=== PATIENT | female | born 1970 | race Caucasian/White ===

== ENCOUNTER 2022-10-29 12:38 | Outpatient (CLI) | payer BC, SELFPAY ==
--- OUTSIDE RECORDS SUMMARY | 2022-10-29 12:44 | XMS_ITS | Clinical Summary ---
Author Name Unknown Organization [facility] Address [address] [place] [address] Encounter 03/08/21 - 03/08/21 [facility] [address] [place] [address] Encounter Diagnosis Chiari I malformation(Discharge Diagnosis) - 03/08/21 Discharge Disposition: Home or Self Care Attending Physician: Jomar Myers MD Admitting Physician: Jomar Myers MD Allergies, Adverse Reactions, Alerts Substance Reaction Severity Status traZODone Moderate Active Discharge Medications buPROPion Status: Ordered Start Date: 03/08/21 300 Milligrams Oral every day. XL. cetirizine (cetirizine 10 mg oral tablet) Status: Ordered Start Date: 03/08/21 1 tabs Oral every day. cholecalciferol (Vitamin D3) Status: Ordered Start Date: 03/08/21 50 Micrograms Oral every day. cyclobenzaprine (Flexeril) Status: Ordered Start Date: 03/08/21 10 Milligrams Oral 3 times a day. dicyclomine (Bentyl) Status: Ordered Start Date: 03/08/21 10 Milligrams Oral. DULoxetine (Cymbalta 30 mg o ral delayed release capsule) Status: Ordered Start Date: 03/08/21 30 Milligrams Oral every day. do not crush or chew. melatonin (Melatonin) Status: Ordered Start Date: 03/08/21 3 Milligrams Oral every day at bedtime. metFORMIN (metFORMIN 500 mg oral tablet) Status: Ordered Start Date: 03/08/21 500 Milligrams Oral 2 times a day. metoprolol (Toprol-XL 100 mg oral tablet, extended release) Status: Ordered Start Date: 03/08/21 1 tabs Oral every day. multivitamin (multivitamin a dult, oral tablet) Status: Ordered Start Date: 03/08/21 1 tabs Oral every day. pantoprazole (Protonix 40 mg oral delayed release tablet) Status: Ordered Start Date: 03/08/21 1 tabs Oral every day. QUEtiapine (SEROquel 50 mg o ral tablet) Status: Ordered Start Date: 03/08/21 50 Milligrams Oral every day. rosuvastatin (Crestor 20 mg oral tablet) Status: Ordered Start Date: 03/08/21 1 tabs Oral every day. zinc sulfate (Zinc) Status: Ordered Start Date: 03/08/21 50 Milligrams Oral every day. Problem List Hospital Discharge Diagnosis Chiari I malformation(Discharge Diagnosis) - 03/08/21 (This Visit) Vital Signs Most recent to oldest [Reference Range]: 1 Pain Present Yes actual or suspec jerry pain (03/08/21 11:20 AM) Able to self report Yes (03/08/21 11:20 AM) able to use numeric rating scale Yes (03/08/21 11:20 AM) Primary Pain Aggravating Factors Movemen t (03/08/21 11:20 AM) Primary Pain Alleviating Factors Cold th erapy, Other: Rest (03/08/21 11:20 AM) Primary Pain Location Neck, Shoulder, Other: joints and bones (03/08/21 11:20 AM) Primary Pain Onset Gradual (03/08/21 11:20 AM) Primary Pain Quality Chronic, Aching 1 (03/08/21 11:20 AM) 1Result Comment: Numb Social History Social History Type Response Smoking Status Unknown if ever smok ed; Exposure to Secondhand Smoke: No; Tobacco use per day: Patient reports she vapes; entered on: 03/08/21 Sex
--- OUTSIDE RECORDS SUMMARY | 2022-10-29 12:44 | XMS_ITS | Clinical Summary ---
Author Name Unknown Organization [facility] Address [address] [place] [id number] Encounter 06/27/22 - 06/27/[address] [address]- Encounter Diagnosis Chiari I malformation(Discharge Diagnosis) - 06/27/22 Discharge Disposition: Home or Self Care Attending Physician: Jomar Myers MD Admitting Physician: Jomar Myers MD Referring Physician: Jomar Myers MD Allergies, Adverse Reactions, Alerts Substance Reaction Severity Status traZODone Moderate Active Discharge Medications buPROPion (buPROPion 150 mg/ 24 hours (XL) oral tablet, extended release) Status: Ordered Start Date: 06/27/22 1 tabs Oral every 24 hours. buPROPion (buPROPion 300 mg/ 24 hours (XL) oral tablet, extended release) Status: Ordered Start Date: 06/27/22 1 tabs Oral every day. cetirizine (cetirizine 10 mg oral tablet) Status: Ordered Start Date: 03/08/21 1 tabs Oral every day. cyclobenzaprine (Flexeril) Status: Ordered Start Date: 03/08/21 10 Milligrams Oral as needed other (see comment). dicyclomine (Bentyl) Status: Ordered Start Date: 03/08/21 20 Milligrams Oral 2 times a day. DULoxetine (Cymbalta 30 mg o ral delayed release capsule) Status: Ordered Start Date: 03/08/21 60 Milligrams Oral every day. do not crush or chew. gabapentin (gabapentin 600 m g oral tablet) Status: Ordered Start Date: 06/27/22 600 mg in AM and 1200mg in PM Oral 2 times a day. lamoTRIgine (lamoTRIgine 200 mg oral tablet) Status: Ordered Start Date: 06/27/22 1 tabs Oral every day. melatonin (Melatonin) Status: Ordered Start Date: 03/08/21 3 Milligrams Oral every day at bedtime. metFORMIN (metFORMIN 500 mg oral tablet) Status: Ordered Start Date: 03/08/21 500 Milligrams Oral 2 times a day. oxybutynin (oxybutynin 10 mg /24 hr oral tablet, extended release) Status: Ordered Start Date: 06/27/22 1 tabs Oral every day. propranolol (propranolol 60 mg oral tablet) Status: Ordered Start Date: 06/27/22 60 Milligrams Oral every day. QUEtiapine (SEROquel 50 mg o ral tablet) Status: Ordered Start Date: 03/08/21 25 Milligrams Oral as needed other (see comment). rosuvastatin (Crestor 20 mg oral tablet) Status: Ordered Start Date: 03/08/21 1 tabs Oral every day. Problem List Condition Confirmation Course Effective Dates Status Health [facility] Informant At high risk for falls 1 Confirmed Active 1Added via Discern Expert [email or web address]_PROBLEM Rule. Hospital Discharge Diagnosis Chiari I malformation(Discharge Diagnosis) - 06/27/22 (This Visit) Vital Signs Most recent to oldest [Reference Range]: 1 Pain Present Yes actual or suspec jerry pain (06/27/22 10:41 AM) Social History Social History Type Response Tobacco Never (less than 100 in lifetime), Exposure to Secondhand Smoke: No. Sex
--- OUTSIDE RECORDS SUMMARY | 2022-10-29 12:44 | XMS_ITS | Clinical Summary ---
Author Name Unknown Organization [facility] Address [address] [place] [address] Encounter 04/05/21 - 04/05/21 [facility] [address] [place] [address] Encounter Diagnosis Chiari I malformation(Discharge Diagnosis) - 04/05/21 Discharge Disposition: Home or Self Care Attending [...] Discharge Diagnosis Chiari I malformation(Discharge Diagnosis) - 04/05/21 (This Visit) Vital Signs Most recent to oldest [Reference Range]: 1 Pain Present Yes actual or suspec jerry pain (04/05/21 9:20 AM) Able to self report Yes (04/05/21 9:20 AM) able to use numeric rating scale Yes (04/05/21 9:20 AM) Social History Social History Type Response Smoking Status Never smoker; Exposu re to Secondhand Smoke: No; Tobacco use per day: Patient reports she vapes; entered on: 04/05/21 Sex
--- OUTSIDE RECORDS SUMMARY | 2022-10-29 12:44 | XMS_ITS | Clinical Summary ---
Author Name Unknown Organization [facility] Address [address] [place] [phone] Care Team Providers Care Re Dye Hand Name Role Phone Lindy Mcnair Primary Care Physician [phone] Encounter 08/21/22 - 08/21/[address] [phone] Encounter Diagnosis Chiari I malformation(Discharge Diagnosis) - 08/21/22 Dizzy(Discharge Diagnosis) - 08/21/22 Balance problems(Discharge Diagnosis) - 08/21/22 Discharge Disposition: Home or Self Care Attending [...] Discern Expert ADD_HIGHRISKFALL_PROBLEM Rule. Hospital Discharge Diagnosis Balance problems(Discharge Diagnosis) - 08/21/22 Chiari I malformation(Discharge Diagnosis) - 08/21/22 Dizzy(Discharge Diagnosis) - 08/21/22 (This Visit) Vital Signs Most recent to oldest [Reference Range]: 1 Pain Present Yes actual or suspec jerry pain (08/21/22 3:03 PM) Able to self report Yes (08/21/22 3:03 PM) able to use numeric rating scale Yes (08/21/22 3:03 PM) Social History Social History Type Response Tobacco Never (less than 100 in lifetime), Exposure to Secondhand Smoke: No. Sex Patient Care team information Personnel Name: Lindy Mcnair MD Address: Address: [address] [address]
--- NOTE | 2022-10-29 13:00 | CRLHL7_ITS ---
For Patients: As a result of the Century Cures Act, medical imaging exams and procedure reports are released immediately into your electronic medical record. You may view this report before your referring provider. If you have questions, please contact your health care provider. INDICATION: Low back pain. Neurogenic claudication. TECHNIQUE: Noncontrast MRI of the lumbar spine is performed usual fashion compared to prior study from March 17, 2021. FINDINGS: There is worsening mild grade 1 degenerative anterolisthesis of L4 on 5 that now measures approximately 5 mm of anterolisthesis versus 3 mm. Remainder of the lumbar spine demonstrates normal overall stature, alignment and intrinsic marrow signal. Conus is within normal limits. L1-2, L2-3: Unremarkable. L3-4: Minimal right lateral disc bulge results in no central canal or foraminal narrowing. L4-5: Moderate to severe bilateral facet arthropathy is again demonstrated. The prior noted synovial cyst emanating from the right facet is no longer present with only mild bony hypertrophy remaining. Central canal is patent. Minimal bilateral foraminal narrowing. L5-S1: Mild bilateral facet arthropathy results in no central canal or foraminal narrowing. IMPRESSION: 1. Mild worsening degenerative anterolisthesis of L4 on 5 with interval resolution of prior synovial cyst emanating from the right facet and worsening minimal bilateral foraminal narrowing at L4-5. 2. Milder degenerative changes within the remainder of the lumbar spine as outlined above. Dictated by Anthony Cast MD @ 10/29/2022 2:56:30 PM (Electronically Signed)
== END 2022-10-29 12:39 | disposition home or self-care (01) ==
PROVIDERS: PCP Family Medicine; Visit Provider Specialist
DX: M54.50 Low back pain, unspecified (principal); M48.062 Spinal stenosis, lumbar region with neurogenic claudication
CPT/HCPCS: 72148

== ENCOUNTER 2023-02-04 03:40 | Emergency (ER) | payer BC, SELFPAY ==
[2023-02-04 03:47] VITALS: BP 142/103; PULSE 82; RESP 18; TEMP 36; O2SAT 96
--- NOTE | 2023-02-04 03:58 | CRLHL7_ITS ---
For Patients: As a result of the Century Cures Act, medical imaging exams and procedure reports are released immediately into your electronic medical record. You may view this report before your referring provider. If you have questions, please contact your health care provider. INDICATION: Fall and vision changes. TECHNIQUE: CT head without contrast. COMPARISON: 11/16/2022. FINDINGS: CSF spaces: Within normal limits for age. Brain parenchyma and extra-axial spaces: The ramos-white differentiation is normal. No sign of mass, hemorrhage, or midline shift. No extra-axial fluid collection. Skull base and calvarium: The visualized paranasal sinuses and mastoid air cells demonstrate no acute or significant findings. The visualized orbits are grossly unremarkable. No skull fractures. IMPRESSION: Unremarkable noncontrast head CT. No acute abnormality and no change from the prior exam. Please note that all CT scans at this facility use dose modulation, iterative reconstruction, and/or weight-based dosing when appropriate to reduce radiation dose to as low as reasonably achievable. Dictated by Quoc Luz MD @ 02/04/2023 4:48:29 AM (Electronically Signed)
--- NOTE | 2023-02-04 03:59 | CRLHL7_ITS ---
For Patients: As a result of the Cures Act, medical imaging exams and procedure reports are released immediately into your electronic medical record. You may view this report before your referring provider. If you have questions, please contact your health care provider. INDICATION: Fall and vision changes. TECHNIQUE: CT cervical spine without contrast. COMPARISON: 11/16/2022. FINDINGS: Vertebrae: Alignment is normal. There are no fractures or suspicious bony lesions. Stable hardware fusion C3-7. Discs and facet joints: Disc spaces and facets are within normal limits. Extraspinal findings: Prevertebral soft tissues, visualized airway, and visualized lungs are unremarkable. IMPRESSION: No sign of acute injury and no change from the prior exam. Please note that all CT scans at this facility use dose modulation, iterative reconstruction, and/or weight-based dosing when appropriate to reduce radiation dose to as low as reasonably achievable. Dictated by Quoc Luz MD @ 02/04/2023 4:52:57 AM (Electronically Signed)
--- NOTE | 2023-02-04 04:00 | ED.GENADULT ---
HPI - General Adult General Chief complaint: Fall/Minor Trauma Stated complaint: Fall Time Seen by Provider: 02/04/23 03:44 Source: patient and EMS Mode of arrival: EMS Limitations: no limitations History of Present Illness HPI narrative: 52-year-old female coming in today after falling at home. She states she had to get up in the middle of the night to use the bathroom and she forgot where she was. She went to open a door in the dark and the door would not open so she fell backwards hitting the side table with her head and neck. She was able to get up and she somehow fell again, this time onto the wooden dog kennel, again hitting the back of her head and neck. She was able to get up that 2nd time turn on the lights and call the ambulance. She states that it took her a minute to realize that she was home. She is not sure why this episode of forgetting where she was occurred. She denies it occurring in the past. However patient does state that she has been falling very frequently at home. She states that her legs are weak all the time and that she feels off balance. She has chronic pain and chronic headaches for which she is seeing a neurologist. She denies recent illness, no fevers or chills. She tells me that everything hurts. She is complaining of pain in the following areas: Head, face, jaw, teeth, gums, neck circumferentially, both shoulders, entire back, both kidneys, both hips, both legs including the thighs, knees, lower legs, both ankles and her feet also hurt. She is not feeling short of breath she denies any vertiginous symptoms. She denies losing consciousness. She is not on any blood thinners. Past medical history is significant for Arnold-Chiari malformation type 1, fibromyalgia, meningioma of the liver, obstructive sleep apnea, urinary incontinence, chronic dizziness, anxiety, depression, personality disorder, panic attack, methamphetamine use disorder in remission, alcohol use disorder in remission, tobacco use disorder-now vaping, diabetes type 2, insomnia, PTSD, irritable bowel syndrome. Past surgical history includes , spinal surgery-cervical spine decompression and fusion, appendectomy, breast augmentation, hysterectomy. Related Data Home Medications Medication Instructions Recorded Confirmed bupropion HCl 300 mg 24 hr tablet, 300 mg PO DAILY 11/16/22 11/16/22 extended release celecoxib 100 mg capsule 100 mg PO BID 11/16/22 11/16/22 duloxetine 60 mg capsule,delayed 120 mg PO DAILY 11/16/22 11/16/22 release exenatide microspheres 2 mg/0.85 mg subcut 11/16/22 mL subcutaneous auto-injector (ByByteActive) gabapentin 600 mg tablet 600 mg PO 3XD 11/16/22 11/16/22 lamotrigine 200 mg tablet 200 mg PO DAILY 11/16/22 11/16/22 metformin 500 mg tablet 500 mg PO BID 11/16/22 11/16/22 oxycodone-acetaminophen 5 mg-325 0.5 - 1 tab PO BID PRN 11/16/22 11/16/22 mg tablet prazosin 2 mg capsule mg PO 11/16/22 propranolol 60 mg capsule,24 60 mg PO DAILY 11/16/22 11/16/22 hr,extended release rosuvastatin 20 mg tablet 20 mg PO QPM 11/16/22 11/16/22 tizanidine 4 mg tablet 4 mg PO QPM PRN 11/16/22 11/16/22 tolterodine 4 mg capsule,extended 4 mg PO DAILY 11/16/22 11/16/22 release 24 hr Previous Rx's Medication Instructions Recorded nitrofurantoin 100 mg PO Q12H 5 days #10 caps 02/04/23 monohydrate/macrocrystals 100 mg capsule (Macrobid) Allergies Allergy/AdvReac Type Severity Reaction Status Date / Time tizanidine Allergy Intermediate Verified 11/16/22 13:29 trazodone Allergy Intermediate Verified 11/16/22 13:29 shingles vaccine Allergy Intermediate Uncoded 11/16/22 13:29 Review of Systems Status of ROS: Reports: 10 or more systems reviewed and unremarkable except as noted in History and below [facility] Social History Smoking Status: Never smoker Do you use any of these nicotine containing products: None and Vaping Products How often do you have a drink containing alcohol: never AUDIT-C Alcohol total score: 0 Non-prescribed substance use: denies use Exam Narrative: Exam Narrative: Well-nourished well-developed patient in no acute distress. She is quite verbose. Alert and oriented x3. Mood and affect are appropriate. Thoughts are goal oriented and rational. No tangential or magical thinking noted. Patient speaks in full sentences without needing to catch her breath. HEENT: Normocephalic atraumatic. I do not see any evidence of trauma. Pupils are equally round reactive to light. Extraocular muscles are intact. Conjunctivae are moist without any icterus noted. Moist mucous membranes. Posterior pharynx is normal. Neck is soft without any lymphadenopathy or thyromegaly. No masses are appreciated. Gums appear healthy, teeth are intact. Cardiovascular: Heart is regular rate and rhythm S1 and S2 are present without any murmurs. Lungs: Clear to auscultation bilaterally no wheezes rhonchi or rales are appreciated. Patient takes deep breaths without any discomfort. Abdomen: Soft and nontender nondistended with normal bowel sounds. No guarding or rebound. No masses or organomegaly appreciated. Extremities: Bilateral lower extremities are without edema. Normal DP and PT pulses. Skin: Well perfused without any obvious rashes. She has an old abrasion to the right knee. Back: Has normal appearance, no bruising or erythema noted. She has no acute tenderness to palpation over the cervical, thoracic or lumbar spine. She winces with discomfort with any movement however she is able to roll over in bed fully without assistance. She does have a cervical collar in place. Strength is 5/5 of the upper and lower extremities. Reflexes are 2+ and symmetric at the knees. Cranial nerves 3-12 are normal. There is no nystagmus either horizontally or vertically. Const: Vital Signs, click to edit/add: Vital Signs - 24 hr 02/04/23 03:47 02/04/23 05:37 Temperature 96.8 F L Pulse Rate [Right Pulse Oximeter] 82 80 Respiratory Rate 18 16 Blood Pressure [Le ft Upper Arm] 142/103 H 142/64 H Pulse Oximetry 96 96 Oxygen Delivery Me thod Room Air Room Air Course Course Hospital Course: IV was established and patient received a L of normal saline. EKG, read by me, shows normal sinus rhythm with a pulse of 76. Head CT, read by me, does not show any acute abnormalities. Radiologic over-read in agreement. CT of the cervical spine was unremarkable. Labs were completely unremarkable. However, her UA was grossly positive for signs of infection. Patient is able to ambulate independently, without assistance of any kind while in the ED. Vital Signs Vital signs: Initial Vital Signs Temperature 96.8 F L 02/04/23 03:47 Temperature Source Temporal Artery Scan 02/04/23 03:47 Pulse Rate 82 02/04/23 03:47 Pulse Rhythm Regular 02/04/23 03:47 Respiratory Rate 18 02/04/23 03:47 Blood Pressure 142/103 H 02/04/23 03:47 Blood Pressure Mean 116 H 02/04/23 03:47 Blood Pressure Position Semi-Fowlers 02/04/23 03:47 Pulse Oximetry 96 02/04/23 03:47 Oxygen Delivery Method Room Air 02/04/23 03:47 Vital Signs Temperature 96.8 F L 02/04/23 03:47 Pulse Rate 82 02/04/23 03:47 Respiratory Rate 18 02/04/23 03:47 Blood Pressure 142/103 H 02/04/23 03:47 Pulse Oximetry 96 02/04/23 03:47 Oxygen Delivery Method Room Air 02/04/23 03:47 Temperature 96.8 F L 02/04/23 03:47 Pulse Rate 80 02/04/23 05:37 Respiratory Rate 16 02/04/23 05:37 Blood Pressure 142/64 H 02/04/23 05:37 Pulse Oximetry 96 02/04/23 05:37 Oxygen Delivery Method Room Air 02/04/23 05:37 Medical Decision Making MDM Narrative Medical decision making narrative: 52-year-old female with recurrent falls. Patient tells me that she does feel safe to go home. She does have a walker at home which she just has not been using. She does need to follow-up with her neurologist and primary care physician to discuss the symptoms and discuss further management. She tells me that she understands this. She has no other questions or concerns. Question potential UTI given patient is not feeling well in general and she is having increased urinary incontinence-will treat with Macrobid for 5 days. Medical Records Medical records reviewed: Yes I reviewed the patient's medical records Lab Data Lab results reviewed: Yes I reviewed the patient's lab results Labs: Lab Results 02/04/23 02/04/23 02/04/23 Range/Units 04:00 04:30 05:30 WBC 6.41 (4.50-11.00) K/uL RBC 3.82 L (4.00-5.20) m/uL Hgb 11.5 L (12.0-16.0) gm/dL Hct 35.4 (33.0-51.0) % MCV 93 (80-100) fL MCH 30 (26-34) pg MCHC 33 (32-36) gm/dL RDW Coeff of Faheem 13.8 (11.5-15.5) % Plt Count 335 (140-440) K/uL Neut % (Auto) 56.8 (42.0-72.0) % Lymph % (Auto) 34.2 (20-44) % Lyman % (Auto) 5.1 (0.0-11.0) % Eos % (Auto) 3.1 (0.0-7.0) % Baso % (Auto) 0.6 (0.0-3.0) % Neut # (Auto) 3.64 (1.7-7.0) K/uL Lymph # (Auto) 2.19 (0.90-2.90) K/uL Lyman # (Auto) 0.30 (0.00-0.90) K/UL Eos # (Auto) 0.20 (0.00-0.50) K/uL Baso # (Auto) 0.04 (0.00-0.30) K/uL Abs Immat Gran (auto) 0.01 (0.00-0.30) K/uL Imm/Tot Granulo (auto) 0.2 % ESR 9 (2-20) mm/hr Sodium 139 (135-149) mmol/L Potassium 3.7 (3.6-5.1) mmol/L Chloride 105 (96-114) mmol/L Carbon Dioxide 22 (20-32) mmol/L BUN 12 (7-30) mg/dL Creatinine 0.8 (0.5-1.5) mg/dL Estimated GFR 88 ml/min Glucose 100 (60-115) mg/dL Lactate 1.9 (0.5-1.9) mmol/L Calcium 9.4 (8.4-10.6) mg/dL Total Bilirubin 0.3 (0.1-1.5) mg/dL Direct Bilirubin 0.1 (0.0-0.5) mg/dL AST 34 (12-35) U/L ALT 34 (4-35) U/L Alkaline Phosphatase 87 (40-150) U/L Troponin I < 0.01 L (0.01-0.04) ng/mL C-Reactive Protein < 0.5 L (0.5-1.0) mg/dL Total Protein 6.9 (6.0-8.3) g/dL Albumin 4.5 (3.3-5.0) g/dL TSH 2.830 (0.270-4.20) uIU/mL Urine Color Yellow (Yellow) Urine Appearance Clear (Clear) Urine pH 5.5 (5.0-8.5) Ur Specific Yermo >= 1.030 (1.000-1.030) Urine Protein Negative (Negative) Urine Glucose (UA) Negative (Negative) Urine Ketones Negative (Negative) Urine Blood Negative (Negative) Urine Nitrite Positive A (Negative) Urine Bilirubin Negative (Negative) Urine Urobilinogen 0.2 (0.2-1.0) Ur Leukocyte Esterase 1+ A (Negative) Urine RBC 0-2 (0-2) Urine WBC 5-10 A (0-5) Ur Squamous Epith Cells Few (None-Few) Amorphous Sediment Few A (None) Urine Bacteria Moderate A (None) Urine Mucus Few A (None) Salicylates 3.9 (1.0-10) mg/dL Urine Opiates Screen Negative (Negative) Ur Oxycodone Screen Negative (Negative) Urine Methadone Screen Negative (Negative) Ur Propoxyphene Screen Negative (Negative) Acetaminophen < 10.0 L (10.0-30.0) ug/mL Ur Barbiturates Screen Negative (Negative) U Tricyclic Antidepress Negative (Negative) Ur Phencyclidine Scrn Negative (Negative) Ur Amphetamines Screen Negative (Negative) U Methamphetamines Scrn Negative (Negative) U Benzodiazepines Scrn Negative (Negative) Urine Cocaine Screen Negative (Negative) U Marijuana (THC) Screen Negative (Negative) Ur Drug Screen Comment See Note Ethyl Alcohol < 0.01 L (0.01-0.03) % POC Troponin I 0.00 L (0.01-0.04) ng/ml Imaging Data CT scan - head: Attestation: I have reviewed the pertinent imaging results. Radiologist's impression: CT head without contrast. COMPARISON: 11/16/2022. FINDINGS: CSF spaces: Within normal limits for age. Brain parenchyma and extra-axial spaces: The ramos-white differentiation is normal. No sign of mass, hemorrhage, or midline shift. No extra-axial fluid collection. Skull base and calvarium: The visualized paranasal sinuses and mastoid air cells demonstrate no acute or significant findings. The visualized orbits are grossly unremarkable. No skull fractures. IMPRESSION: Unremarkable noncontrast head CT. No acute abnormality and no change from the prior exam. CT cervical spine: Attestation: I have reviewed the pertinent imaging results. Radiologist's impression: CT cervical spine without contrast. COMPARISON: 11/16/2022. FINDINGS: Vertebrae: Alignment is normal. There are no fractures or suspicious bony lesions. Stable hardware fusion C3-7. Discs and facet joints: Disc spaces and facets are within normal limits. Extraspinal findings: Prevertebral soft tissues, visualized airway, and visualized lungs are unremarkable. IMPRESSION: No sign of acute injury and no change from the prior exam. ECG Data Attestation: I personally reviewed and interpreted this ECG as follows: Discharge Plan Discharge Clinical Impression: Fall, UTI (urinary tract infection) Patient Disposition: Home, Self-Care Condition: Stable Additional Instructions: You need to follow-up with your primary care provider or your neurologist as soon as you can to discuss your recurrent falls and things that you can do to stay safe. This may include physical therapy or further workup. You should use your walker at all times. Prescriptions: New nitrofurantoin monohyd/m-cryst [Macrobid] 100 mg capsule 100 mg PO Q12H 5 Days Qty: 10 0RF Rx Instructions: must administer with a meal/food No Action metformin 500 mg tablet 500 mg PO BID gabapentin 600 mg tablet 600 mg PO 3XD lamotrigine 200 mg tablet 200 mg PO DAILY tizanidine 4 mg tablet 4 mg PO QPM PRN tolterodine 4 mg capsule,extended release 24hr 4 mg PO DAILY propranolol 60 mg capsule,extended release 24 hr 60 mg PO DAILY oxycodone-acetaminophen 5-325 mg tablet 0.5 - 1 tab PO BID PRN celecoxib 100 mg capsule 100 mg PO BID prazosin 2 mg capsule PO rosuvastatin 20 mg tablet 20 mg PO QPM bupropion HCl 300 mg tablet extended release 24 hr 300 mg PO DAILY duloxetine 60 mg capsule,delayed release(DR/EC) 120 mg PO DAILY Bydureon BCise 2 mg/0.85 mL auto-injector subcut Follow Up/Referrals: Lindy Mcnair MD [Primary Care Provider] - Stand Alone Forms: [employer] Info Instructions
[2023-02-04 04:38] LABS: Lactate* 1.9 mmol/L (0.5-1.9)
[2023-02-04] MEDS: 0.9 % SODIUM CHLORIDE 1000 ml 1,000 ML IV (04:40)
[2023-02-04 04:42] LABS: Basophils Absolute Auto 0.04 K/uL (0.00-0.30); Basophils Percent Auto 0.6 % (0.0-3.0); Eosinophils Percent Auto 3.1 % (0.0-7.0); Hematocrit 35.4 % (33.0-51.0); Hemoglobin* 11.5 gm/dL (12.0-16.0); Immature Granulocytes Abs Auto 0.01 K/uL (0.00-0.30); Immature Granulocytes Pct Auto 0.2 %; Lymphocytes Absolute Auto 2.19 K/uL (0.90-2.90); Lymphocytes Percent Auto 34.2 % (20-44); Mean Corpuscular HGB Conc 33 gm/dL (32-36); Mean Corpuscular Hemoglobin 30 pg (26-34); Mean Corpuscular Volume 93 fL (80-100); Monocytes Percent Auto 5.1 % (0.0-11.0); Neutrophils Absolute Auto 3.64 K/uL (1.7-7.0); Neutrophils Percent Auto 56.8 % (42.0-72.0); Platelet Count* 335 K/uL (140-440); RDW Coefficient of Variation % 13.8 % (11.5-15.5); Red Blood Count 3.82 m/uL (4.00-5.20); White Blood Count* 6.41 K/uL (4.50-11.00)
[2023-02-04 04:44] LABS: Slide Review Reflex No
[2023-02-04 04:55] LABS: Albumin* 4.5 g/dL (3.3-5.0)
[2023-02-04 04:56] LABS: Chloride* 105 mmol/L (96-114); Potassium* 3.7 mmol/L (3.6-5.1); Sodium* 139 mmol/L (135-149)
[2023-02-04 04:58] LABS: Alanine Aminotransferase* 34 U/L (4-35); Alkaline Phosphatase* 87 U/L (40-150); Aspartate Amino Transferase* 34 U/L (12-35); Bilirubin Direct* 0.1 mg/dL (0.0-0.5); Bilirubin Total* 0.3 mg/dL (0.1-1.5); Creatinine* 0.8 mg/dL (0.5-1.5); Estimated Glomerular Filt Rate 88 ml/min; Salicylate* 3.9 mg/dL (1.0-10); Total Protein* 6.9 g/dL (6.0-8.3)
[2023-02-04 04:59] LABS: Blood Urea Nitrogen* 12 mg/dL (7-30); Carbon Dioxide* 22 mmol/L (20-32); Ethanol* < 0.01 % (0.01-0.03)
[2023-02-04 05:00] LABS: Calcium* 9.4 mg/dL (8.4-10.6); Glucose* 100 mg/dL (60-115)
[2023-02-04 05:02] LABS: Acetaminophen* < 10.0 ug/mL (10.0-30.0); C Reactive Protein* < 0.5 mg/dL (0.5-1.0)
[2023-02-04 05:11] LABS: Troponin I* < 0.01 ng/mL (0.01-0.04)
[2023-02-04 05:19] LABS: Erythrocyte SedimentationRate* 9 mm/hr (2-20)
[2023-02-04 05:37] VITALS: BP 142/64; PULSE 80; RESP 16; O2SAT 96
[2023-02-04 05:38] LABS: Appearance Urine Clear (Clear); Bilirubin Urine Negative (Negative); Blood Urine Negative (Negative); Color Urine Yellow (Yellow); Glucose Urine Negative (Negative); Ketones Urine Negative (Negative); Leukocyte Esterase Urine 1+ (Negative); Nitrite Urine Positive (Negative); Protein Urine Negative (Negative); Specific Gravity Urine >= 1.030 (1.000-1.030); Urobilinogen Urine 0.2 (0.2-1.0); pH Urine 5.5 (5.0-8.5)
[2023-02-04 05:45] LABS: Amphetamine Screen Urine Negative (Negative); Barbiturate Screen Urine Negative (Negative); Benzodiazepines Screen Urine Negative (Negative); Cannabinoid Screen Urine Negative (Negative); Cocaine Screen Urine Negative (Negative); Methadone Screen Urine Negative (Negative); Methamphetamines Screen Urine Negative (Negative); Opiate Screen Urine Negative (Negative); Oxycodone Screen Urine Negative (Negative); Phencyclidine Screen Urine Negative (Negative); Tricyclic Antidepressant Urine Negative (Negative)
[2023-02-04 05:55] LABS: RBC Urine 0-2 (0-2)
[2023-02-04 05:56] LABS: Amorphous Sediment Urine Few; Bacteria Urine Moderate; Mucus Urine Few; Squamous Epithelial Cell Urine Few (None-Few)
--- NOTE | 2023-02-04 06:25 | ED.NURSE ---
Left message on phone to call back. To whom reads this, in Regards to a antibiotic sent to pharmacy for possible UTI.
--- NOTE | 2023-02-04 06:28 | ED.NURSE ---
PT called back, pt was informed to go to pharmacy to picker tender helper antibiotic.
== END 2023-02-04 05:38 | disposition home or self-care (01) ==
PROVIDERS: Emergency Provider Family Medicine; PCP Family Medicine
DX: S09.90XA Unspecified injury of head, initial encounter (principal); N39.0 Urinary tract infection, site not specified; W19.XXXA Unspecified fall, initial encounter
CPT/HCPCS: 36415; 70450; 72125; 80048; 80076; 80143; 80179; 80306; 81001; 82077; 83605; 84443; 84484; 85025; 85651; 86140; 87086; 87186; 93005; 99283; 99284; J7030

== ENCOUNTER 2023-04-09 20:47 | Outpatient (CLI) | payer BC, SELFPAY | END 2023-04-09 20:48 | disposition home or self-care (01) | LOC: SLEEP 20:48 | PROVIDERS: PCP Family Medicine; Visit Provider Internal Medicine | DX: G47.33 Obstructive sleep apnea (adult) (pediatric) (principal) | CPT/HCPCS: 95811 ==

== ENCOUNTER 2023-04-09 21:15 | Emergency (ER) | payer BC, SELFPAY ==
[2023-04-09 21:24] VITALS: BP 146/83; PULSE 84; RESP 20; TEMP 36.4; O2SAT 98; BMI 29.7
--- NOTE | 2023-04-09 21:58 | CRLHL7_ITS ---
For Patients: As a result of the Century Cures Act, medical imaging exams and procedure reports are released immediately into your electronic medical record. You may view this report before your referring provider. If you have questions, please contact your health care provider. INDICATION: SUDDEN NECK PAIN WITH MOVEMENT TECHNIQUE: CT cervical spine without contrast. COMPARISON: 10/1922. FINDINGS: Extensive anterior and posterior fusion changes from C3 to C7. No acute fracture or prevertebral soft tissue swelling. Alignment is normal. Moderate degenerative disc changes at C7-T1. The craniocervical junction is intact. No erosive osseous lesion. The extra-spinal soft tissues are unremarkable. IMPRESSION: No acute bony abnormality. Extensive anterior and posterior fusion changes from C3 to C7. No significant interval change compared to the prior exam. Please note that all CT scans at this facility use dose modulation, iterative reconstruction, and/or weight-based dosing when appropriate to reduce radiation dose to as low as reasonably achievable. Dictated by Doni Strong MD @ 04/09/2023 11:19:11 PM (Electronically Signed)
--- NOTE | 2023-04-09 22:01 | ED.GENADULT ---
HPI - General Adult General Chief complaint: Neuro Symptoms/Altered Deficit Stated complaint: Fall Time Seen by Provider: 04/09/23 21:30 History of Present Illness HPI narrative: Pt arrives from sleep study for evaluation of new neurologic symptoms after shaking her neck. Patient states that she sat up and shook her head and immediately started having tingling down both arms and into her hands, pain in her neck and new onset of acute on chronic back . Patient states that she has a neck fusion and isnt supposed to move her neck like she did. Patient states that her slept dental service technician sent her in because they were concerned about her. 52-year-old woman presenting to the emergency department with concern of potential stroke. Sounds as though adjust entered the room for a sleep study. Had not yet lay down was turning on the TV. She went to shake her hair out of her ice or just her hair. Shook her head head sudden onset of pain which is very intense from her neck down and then began to experience tingling is in all limbs and seems to be having some difficulty speaking. She notes a history of cervical fusion and that she isn't supposed to move her neck like that. She would like some ice chips. No prior CVA. Initially on interview she says she does not normally talk like this. Related Data Home Medications Medication Instructions Recorded Confirmed bupropion HCl 300 mg 24 hr tablet, 300 mg PO DAILY 11/16/22 04/09/23 extended release celecoxib 100 mg capsule 100 mg PO BID 11/16/22 04/09/23 duloxetine 60 mg capsule,delayed 120 mg PO DAILY 11/16/22 04/09/23 release exenatide microspheres 2 mg/0.85 mg subcut 11/16/22 mL subcutaneous auto-injector (Guarnic) gabapentin 600 mg tablet 600 mg PO 3XD 11/16/22 04/09/23 lamotrigine 200 mg tablet 200 mg PO DAILY 11/16/22 04/09/23 metformin 500 mg tablet 500 mg PO BID 11/16/22 04/09/23 oxycodone-acetaminophen 5 mg-325 0.5 - 1 tab PO BID PRN 11/16/22 04/09/23 mg tablet prazosin 2 mg capsule mg PO 11/16/22 propranolol 60 mg capsule,24 60 mg PO DAILY 05/19/23 10/10/23 hr,extended release rosuvastatin 20 mg tablet 20 mg PO QPM 11/16/22 04/09/23 tizanidine 4 mg tablet 4 mg PO QPM PRN 11/16/22 04/09/23 tolterodine 4 mg capsule,extended 4 mg PO DAILY 11/16/22 04/09/23 release 24 hr Previous Rx's Medication Instructions Recorded nitrofurantoin 100 mg PO Q12H 5 days #10 caps 02/04/23 monohydrate/macrocrystals 100 mg capsule (Macrobid) Allergies Allergy/AdvReac Type Severity Reaction Status Date / Time tizanidine Allergy Intermediate Verified 11/16/22 13:29 trazodone Allergy Intermediate Verified 11/16/22 13:29 shingles vaccine Allergy Intermediate Uncoded 11/16/22 13:29 Review of Systems Status of ROS: Reports: 6 or more systems reviewed and unremarkable except as noted in History and below [facility] Social History Smoking Status: Never smoker Do you use any of these nicotine containing products: None and Vaping Products How often do you have a drink containing alcohol: never AUDIT-C Alcohol total score: 0 Non-prescribed substance use: denies use Exam Narrative: Exam Narrative: Does seem rather anxious to me. She is moving all extremities without difficulty though pain more with manipulation of her left shoulder least raising her arm. She is quite tense and tender in the declan cervical trapezial musculature on the left side. not specifically with midline neck tenderness. Well-perfused with equal pulses bilaterally in the upper extremities. She is subtly slurring her words. Cranial nerves 2-12 otherwise look to be intact. No sensory losses actually in the extremities. Heart in regular rate and rhythm. Lungs are clear. Const: Vital Signs, click to edit/add: Vital Signs - 24 hr 04/09/23 21:24 Temperature 97.6 F Pulse Rate [Pulse Oximeter] 84 Respiratory Rate 20 Blood Pressure [Ri ght Upper Arm] 146/83 H Pulse Oximetry 98 Documenting provider has reviewed patient's vital signs: yes Course Vital Signs Vital signs: Initial Vital Signs Temperature 97.6 F 04/09/23 21:24 Temperature Source Temporal Artery Scan 04/09/23 21:24 Pulse Rate 84 04/09/23 21:24 Pulse Rhythm Regular 04/09/23 21:24 Respiratory Rate 20 04/09/23 21:24 Blood Pressure 146/83 H 04/09/23 21:24 Blood Pressure Mean 104 04/09/23 21:24 Blood Pressure Position Sitting 04/09/23 21:24 Pulse Oximetry 98 04/09/23 21:24 Vital Signs Temperature 97.6 F 04/09/23 21:24 Pulse Rate 84 04/09/23 21:24 Respiratory Rate 20 04/09/23 21:24 Blood Pressure 146/83 H 04/09/23 21:24 Pulse Oximetry 98 04/09/23 21:24 Temperature 97.6 F 04/09/23 21:24 Pulse Rate 84 04/09/23 21:24 Respiratory Rate 20 04/09/23 21:24 Blood Pressure 146/83 H 04/09/23 21:24 Pulse Oximetry 97 04/09/23 22:37 Medical Decision Making MDM Narrative Medical decision making narrative: With prior fusion I presume is more prone to some neck pain. This was an unusual movement. Perhaps jumped facet and now resulting muscle spasm that also accelerated a panic attack. I do not see symptoms consistent with CVA per her concern. I think it will be easiest to get control of her symptoms with IV placement. Had been initiated. Receives a L of normal saline and half a mg of lorazepam and then also ketorolac. She does have significant surgeons about her neck. I do offer imaging. I think x-ray would be limited in CT compromised by hardware but that is what is available. Cervical spine CT is done. I did review these images. Only postoperative and osteoarthritic changes are noted. No acute changes. She later does admit that does have chronically slurred speech. Offered soft collar. Overall markedly improved and was able to return to her sleep study. Of note in the emergency department did have a bowel movement that sounded to be stained with some rectal passage bleeding. Discussed. See patient discharge plan Medical Records Medical records reviewed: Yes I reviewed the patient's medical records Discharge Plan Discharge Clinical Impression: Anxiety attack, Neck pain Patient Disposition: Home w/ Parent or Adult Condition: Improved Additional Instructions: You will probably need to do some stretches over the next couple of days. I hope you can have a good night's sleep. A soft collar might be helpful here and there over this next week. Prescriptions: No Action metformin 500 mg tablet 500 mg PO BID gabapentin 600 mg tablet 600 mg PO 3XD lamotrigine 200 mg tablet 200 mg PO DAILY tizanidine 4 mg tablet 4 mg PO QPM PRN tolterodine 4 mg capsule,extended release 24hr 4 mg PO DAILY propranolol 60 mg capsule,extended release 24 hr 60 mg PO DAILY oxycodone-acetaminophen 5-325 mg tablet 0.5 - 1 tab PO BID PRN celecoxib 100 mg capsule 100 mg PO BID prazosin 2 mg capsule PO rosuvastatin 20 mg tablet 20 mg PO QPM bupropion HCl 300 mg tablet extended release 24 hr 300 mg PO DAILY duloxetine 60 mg capsule,delayed release(DR/EC) 120 mg PO DAILY Bydureon BCise 2 mg/0.85 mL auto-injector subcut nitrofurantoin monohyd/m-cryst [Macrobid] 100 mg capsule 100 mg PO Q12H 5 Days Qty: 10 0RF Rx Instructions: must administer with a meal/food Follow Up/Referrals: Lindy Mcnair MD [Primary Care Provider] - Stand Alone Forms: [facility] Info Instructions
[2023-04-09] MEDS: 0.9 % SODIUM CHLORIDE 1000 ml 1,000 ML IV (22:36)
[2023-04-09] MEDS: LORazepam 2 MG/ML inj 0.5 MG IVP (22:36)
[2023-04-09 22:37] VITALS: O2SAT 97
--- NOTE | 2023-04-09 23:05 | ED.NURSE ---
patient up to the commode. Blood in bowel movement. Patient back to bed. reconnected to monitor
[2023-04-09] MEDS: KETOROLAC 30 MG/ML inj IVP (23:45)
== END 2023-04-09 23:45 | disposition home or self-care (01) ==
PROVIDERS: Emergency Provider Family Medicine; PCP Family Medicine
DX: M54.2 Cervicalgia (principal); F41.0 Panic disorder [episodic paroxysmal anxiety]
CPT/HCPCS: 72125; 94761; 99284; J1885; J2060; J7030

== ENCOUNTER 2023-08-09 12:50 | Outpatient (CLI) | payer MEDICARE, MEDICAID, SELFPAY ==
--- OUTSIDE RECORDS SUMMARY | 2023-08-09 12:54 | XMS_ITS | Encounter Summary ---
Author Name Unknown Organization [facility] Address [address] [place] [address] Care Team Providers Care Mold Operator Name Role Phone Brandt Harper MD Primary Care Provider [phone] Encounter Details Date Type Department Care Team Description 04/09/2023 Orders Only [facility] DEPARTMENT Provider, [place] [address] Social History Tobacco Use Types Packs/Day Years Used Date Smoking Tobacco: Former Smokeless Tobacco: Never Alcohol Use Standard Drinks/Week Comments No 0 (1 standard drink = 0.6 oz pur e alcohol) Sex and Gender Information Value Date Recorded Sex Assigned at Not on file Gender Identity Not on file Sexual Orientation Not on file documented as of this encounter Plan of Treatment Not on file documented as of this encounter Procedures Procedure Name Priority Date/Time Associated Diagnosis Comments PFT 04/09/2023 documented in this encounter Results * PFT (04/09/2023) Interface Provider DUMMY/OTHER/AR documented in this encounter Visit Diagnoses Not on filedocumented in this encounter Care Teams Mold Operator Relationship Specialty Start Date End Date Brandt Harper MD [facility] [address] [facility] [place] [id number] PCP - General Family Practice 02/18/17 documented as of this encounter
--- OUTSIDE RECORDS SUMMARY | 2023-08-09 12:54 | XMS_ITS | Clinical Summary ---
Author Name Unknown Organization [facility] Address [address] [place] [address] Care Team Providers Care Electrical Systems Drafter Name Role Phone Brandt Harper MD Primary Care Provider [phone] Source Comments You are receiving this document as you are listed as the primary care provider,follow-up provider, or the patient has been referred to you for consultation.This is in compliance with the Medicare and[facility] EHR Incentive Program,which states Providers who transition their patient to another setting of careor provider of care or refers their patient to another provider of care shouldprovide summary care record for each transition of care or referral. [facility] Allergies Active Allergy Reactions Criticality Noted Date Comments Ropinirole Other, see comments 04/05/2017 No response Trazodone Other, see comments 04/05/2017 Feels she has trouble breathing Medications Medication Sig Dispensed Refills Start Date End Date Status ALBUterol sulfate HFA 108 (90 Base) MCG/ACT inhaler Inhale 2 Puffs. 0 07/15/2015 Active metoprolol succinate (TOPROL XL) 100 MG 24 hour release tablet Take 100 mg by mouth daily. 0 Active buPROPion (WELLBUTRIN XL) 150 MG 24 hour release tablet Take 150 mg by mouth. 0 03/30/2020 Active cyclobenzaprine (FLEXERIL) 10 MG tablet Take 10 mg by mouth. 0 03/10/2020 Active cetirizine (ZYRTEC) 10 MG tablet Take 1 Tablet by mouth. 0 Active dicyclomine (BENTYL) 10 MG capsule TK ONE C PO TID 0 03/24/2020 Active DULoxetine (CYMBALTA) 20 MG capsule TK 1 C PO ONCE D 0 03/30/2020 Activ e gemfibrozil (LOPID) 600 MG tablet TK 1 T PO BID B MEALS 0 03/30/2020 Active pantoprazole (PROTONIX) 40 MG tablet TK 1 T PO QD 30 MINUTES BEFORE BREAKFAST 0 03/15/2020 Active amphetamine-dextroamp hetamine (ADDERALL) 15 MG tablet Take 15 mg by mouth. 0 05/09/2020 Active Active Problems Problem Noted Date Diagnosed Date Attention deficit disorder 03/29/2017 Insomnia 03/29/2017 Depression 03/29/2017 S/P appendectomy 03/29/2017 delivery delivered 03/29/2017 Fibromyalgia 03/29/2017 LEO (obstructive sleep apnea) 03/29/2017 Tobacco use disorder 12/05/2002 Overview: Tobacco Abuse Family History Medical History Relation Name Comments Diabetes Father Heart Disease Father Arthritis Mother Diabetes Mother Heart Disease Mother Relation Name Status Comments Father Alive Mother Alive Social History Tobacco Use Types Packs/Day Years Used Date Smoking Tobacco: Former Smokeless Tobacco: Never Alcohol Use Standard Drinks/Week Comments No 0 (1 standard drink = 0.6 oz pur e alcohol) Sex and Gender Information Value Date Recorded Sex Assigned at Not on file Gender Identity Not on file Sexual Orientation Not on file Last Filed Vital Signs Vital Sign Reading Time Taken Comments Blood Pressure 136/93 04/27/2019 1:10 PM CDT Pulse 85 04/27/2019 1:10 PM CDT Temperature - - Respiratory Rate 18 04/27/2019 1:10 PM CDT Oxygen Saturation - - Inhaled Oxygen Concentration - - Weight 69.4 kg (153 lb) 05/26/2018 1:27 PM [employer] Height 167.6 cm (5' 6) 05/26/2018 1:27 PM [employer] Body Mass Index 24.69 05/26/2018 1:27 PM [employer] Plan of Treatment Health Maintenance Due Date Last Done Comments Colon Cancer Screening Plan Due 1969 Hep C Screening (Preventive Services) 1969 HepB (1) 1969 Mammogram 1969 COVID-19 Vaccine (#1) 05/02/1970 HIV Screening (Preventive Services) 1985 Adult Preventive Visit 10/31/1987 Cervical Cancer Screening Due 06/21/1999 06/20/1999, 11/24/1997 Cholesterol 2014 Zoster/Shingles (1 of 2) 10/31/2019 DTaP/Tdap/Td (3 - Tdap) 01/10/2022 01/11/2012, 05/16 Influenza (#1) 2023 04/16/2018, 10/0 10/2014, 07/26/2014, Additional history exists HepA Aged Out No longer eligi ble based on patient's age to complete this topic Hib Aged Out No longer eligi ble based on patient's age to complete this topic IPV (Polio) Aged Out No longer eligi ble based on patient's age to complete this topic MCV4 Aged Out No longer eligi ble based on patient's age to complete this topic Pneumococcal Aged Out No longer eligi ble based on patient's age to complete this topic Care Teams Electrical Systems Drafter Relationship Specialty Start Date End Date Brandt Harper MD [facility] [address] [place] [address] PCP - General Family Practice 02/18/17
--- OUTSIDE RECORDS SUMMARY | 2023-08-09 12:54 | XMS_ITS | Encounter Summary ---
Author Name Unknown Organization [facility] Address [address] [place] [address] Care Team Providers Care Applied Technologist Name Role Phone Brandt Harper MD Primary Care Provider [phone] Encounter Details Date Type Department Care Team Description 10/01/2022 tristen Gee [phone] Social History Tobacco Use Types Packs/Day Years Used Date Smoking Tobacco: Former Smokeless Tobacco: Never Alcohol Use Standard Drinks/Week Comments No 0 (1 standard drink = 0.6 oz pur e alcohol) Sex and Gender Information Value Date Recorded Sex Assigned at Not on file Gender Identity Not on file Sexual Orientation Not on file documented as of this encounter Progress Notes * FAMILY MEDICINETRISTEN PROVIDER - 10/01/2022 7:54 PM CDT tristen Addendum Treatment Plan Diagnosis Urinary Tract Infection Visit Date October 01, 2022 Addendum Date October 01, 2022 Saloni Cardenas Date of : 68 Provider Sandrita Villatoro, Nurse Practitioner Note From Provider Rodrigo Guallpa, Your prescription should be available at [facility]! Sorry about any inconvenience this caused. Take the medication with a full meal twice a day and remember to drink lots of fluids. We are here for you for any questions or concerns along the way, just Request a Callback. Feel better soon!MARY Remy. Treatment Plan Since you have a bacterial infection, let's try an antibiotic. I sent a prescriptionto [facility]. I've also listed a few of the best ways to soothe your discomfortand some additional self-care tips to get you on the road to feeling better.If your symptoms don't start to improve after 3 days, or if you havequestions, please select Help to Request a callback andwe'll talk about your nextsteps for free. Order(s) nitrofurantoin monohyd/m-cryst 100 mg capsule Take 1 capsule by mouth every twelve hours as directed for 5 days Note: Take with food to improve absorption. Refills: None Sent To: [facility] [place] [place], [place] [id number] Treatment Plan Self Care Tip Topics Drink Water Avoid Caffeine Warm Packs What to Expect If you follow the recommendations I made on the Treatment tab, your symptomsshould start to improvein about 3 days. If your symptoms don't start to improve after 3 days, or if you have questions, please select Help toRequest a callback and we'll helpdetermine your next step for free. What to Watch Out For Give us a call if you experience: ??? High fever ??? Shaking chills ??? Worsening pain with urination ??? Severe pain in your back, abdomen or pelvis My Conditions, Orders, Allergies as of October 01, 2022 Standard condition list Diabetes Depression Anxiety Current orders nitrofurantoin monohyd/m-cryst (nitrofurantoin monohyd/m-cryst) Wellbutrin XL (bupropion HCl) quetiapine (quetiapine) metformin (metformin) melatonin (melatonin) dicyclomine (dicyclomine) lamotrigine (lamotrigine) duloxetine (duloxetine) oxybutynin (oxybutynin) gabapentin (gabapentin) rosuvastatin (rosuvastatin) propranolol (propranolol) hydrocodone-acetaminophen (hydrocodone-acetaminophen) Allergies None [facility] We are an online clinic open 21/01. If you have any questions or comments about this visit, please call or email [email or web address] * FAMILY MEDICINE, TRISTEN PROVIDER - 10/01/2022 3:39 PM CDT tristen Treatment Plan Diagnosis Urinary Tract Infection Visit Date October 01, 2022 Saloni Cardenas Date of : 68 Provider Arlet Veras, Nurse Practitioner Note From Provider Rodrigo Guallpa,I?? sorry to hear that you're having symptoms of a bladder infection.'ve sent a prescription for an antibiotic to your pharmacy. Take the medication with a full meal twice a day and rememberto drink lots of fluids. We are here for you for any questions or concerns along the way, just Request a Callback. Feel better soon!Arlet Treatment Plan Since you have a bacterial infection, let's try an antibiotic. I sent a prescriptionto [pharmacy name]. I've also listed a few of the best ways to soothe your discomfortand some additional self-care tips to get you on the road to feeling better.If your symptoms don't start to improve after 3 days, or if you havequestions, please select Help to Request a callback andwe'll talk about your next steps for free. Order(s) None Treatment Plan Self Care Tip Topics Drink Water Avoid Caffeine Warm Packs What to Expect If you follow the recommendations I made on the Treatment tab, your symptomsshould start to improvein about 3 days. If your symptoms don't start to improve after 3 days, or if you have questions, please select Help toRequest a callback and we'll helpdetermine your next step for free. What to Watch Out For Give us a call if you experience: ??? High fever ??? Shaking chills ??? Worsening pain with urination ??? Severe pain in your back, abdomen or pelvis My Conditions, Orders, Allergies as of October 01, 2022 Standard condition list Diabetes Depression Anxiety Current orders Wellbutrin XL (bupropion HCl) quetiapine (quetiapine) metformin (metformin) melatonin (melatonin) dicyclomine (dicyclomine) lamotrigine (lamotrigine) duloxetine (duloxetine) oxybutynin (oxybutynin) gabapentin (gabapentin) rosuvastatin (rosuvastatin) propranolol (propranolol) hydrocodone-acetaminophen (hydrocodone-acetaminophen) Allergies None [facility] Information [facility] We are an online clinic open 21/01. If you have any questions or comments about this visit, please call or email [email or web address] documented in this encounter Plan of Treatment Not on file documented as of this encounter Visit Diagnoses Not on filedocumented in this encounter Care Teams Applied Technologist Relationship Specialty Start Date End Date Brandt Harper MD [facility] [address] [place] [address] PCP - General Family Practice 02/18/17 documented as of this encounter
--- OUTSIDE RECORDS SUMMARY | 2023-08-09 12:55 | XMS_ITS | Clinical Summary ---
Author Name Unknown Organization [employer] [facility] Address [place], [place] [address] Care Team Providers Care Spa Technician Name Role Phone Lindy Mcnair MD Primary Care Provide r Allergies Active Allergy Reactions Criticality Noted Date Comments Pregabalin Other - Describe In Comment Field 01/26/2020 neuropathy Ropinirole Other - Describe In Comment Field 04/05/2017 No response Varicella-Zoster [id number] (Pf) Rash 10/23/2022 Tizanidine Hallucinations High 11/16/2022 Trazodone Dyspnea High 04/05/2017 Varicella Vaccines Rash High 11/16/2022 Shingles vaccine Medications Medication Sig Dispensed Refills Start Date End Date Status ondansetron (ZOFRAN ODT) 4 mg disintegrating tabletIndications:C ervical radiculopathy Place 1 Tablet (4 mg) on the tongue every 6 hours if needed for Nausea/Vomitin g. 20 Tablet 0 04/30/2021 Active dicyclomine (BENTYL) 20 mg tabletIndications:I rritable bowel syndrome, unspecified type TAKE 1 TABLET(20 MG) BY MOUTH THREE TIMES DAILY BEFORE MEALS 270 Tablet 3 08/29/2022 Active rosuvastatin (CRESTOR) 20 mg tabletIndications:C ontrolled type 2 diabetes mellitus without complication, without long-term current use of insulin (HC) Take 1 Tablet (20 mg) by mouth once daily with evening meal. 90 Tablet 3 10/18/2022 Active metFORMIN (GLUCOPHAGE) 500 mg tabletIndications:C ontrolled type 2 diabetes mellitus without complication, without long-term current use of insulin (HC) Take 1 Tablet (500 mg) by mouth two times daily with meals. 180 Tablet 3 10/19/2022 Active celecoxib (CELEBREX) 100 mg capsule TAKE 1 CAPSULE BY MOUTH TWICE DAILY WITH FOOD 0 10/18/2022 Active methocarbamoL (ROBAXIN) 500 mg tablet TAKE 1 TABLET BY MOUTH THREE TIMES DAILY NEEDED FOR MUSCLE SPASM 0 08/06/2022 Active oxyCODONE-acetamino phen (PERCOCET) 5-325 mg per tablet TAKE ONE-HALF TO ONE TABLET BY MOUTH TWICE DAILY NEEDED 0 10/02/2022 Active albuterol HFA (ProAir HFA) 90 mcg/actuation inhalerIndications: Wheezing Inhale 2 Puffs by mouth every 4 hours while awake. 1 Each 3 01/08/2023 Active DULoxetine (CYMBALTA) 60 mg Delayed-release capsuleIndications: Major depressive disorder, recurrent, moderate (HC) Take 1 Capsule (60 mg) by mouth once daily. 90 Capsule 3 01/15/2023 Active buPROPion (WELLBUTRIN XL) 300 mg Extended-Release tabletIndications:M ajor depressive disorder, recurrent, moderate (HC) Take 1 Tablet (300 mg) by mouth once daily. 90 Tablet 3 01/15/2023 Active gabapentin (NEURONTIN) 600 mg tabletIndications:D DD (degenerative disc disease), lumbar 600 mg in the morning, 300 mg in the afternoon and 600 mg at night for 2 weeks followed by 300 mg in the morning 300 mg in the afternoon and 600 mg at night. 0 02/14/2023 Active propranolol ER (INDERAL LA) 60 mg Cs24 Sustained-Release capsuleIndications: HTN (hypertension) TAKE 1 CAPSULE(60 MG) BY MOUTH ONCE DAILY 90 Capsule 2 02/22/2023 Active prazosin (MINIPRESS) 5 mg capsuleIndications: Posttraumatic stress disorder Take 1 Capsule (5 mg) by mouth once daily AND 2 Capsules (10 mg) at bedtime. 270 Capsule 3 03/20/2023 Active estradioL (ESTRACE) 0.01% (0.1 mg/g) vaginal creamIndications:Re current UTI (urinary tract infection) Insert 1 g into the vagina once weekly. 1 Each 5 04/04/2023 Active Symbicort 80-4.5 mcg/actuation (80-4.5 mcg each actuation) inhalerIndications: Asthma, unspecified asthma severity, unspecified whether complicated, unspecified whether persistent Inhale 2 Puffs by mouth two times daily. 10.2 g 11 04/15/2023 Active propranoloL (INDERAL) 40 mg tabletIndications:G eneralized anxiety disorder,Panic disorder with agoraphobia,Mood disorder as late effect of traumatic brain injury (HC) Take 0.5-1 Tablet (20-40 mg) by mouth twice daily if needed for anxiety, anger. In addition to your daily extended release form 30 Tablet 2 05/06/2023 Active BiPapIndications:OS A (obstructive sleep apnea) autoBIPAP machine for home use at pressure: EPAP 5-20cmw, PS 5cmw, full face mask x1/3month with a full face cushion x1/mo, lifetime length of need, daily use. 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 180 Tablet 3 06/05/2023 Active melatonin 3 mg capIndications:Inso mnia due to mental condition Take 6 mg by mouth at bedtime. 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 30 Tablet 2 06/05/2023 Active HYDROmorphone (DILAUDID) 2 mg tabletIndications:I njury of back, initial encounter Take 1 Tablet (2 mg) by mouth every 4 hours if needed for Pain. 10 Tablet 0 07/07/2023 Active ondansetron (ZOFRAN ODT) 4 mg disintegrating tabletIndications:I njury of back, initial encounter Place 1 Tablet (4 mg) on the tongue every 8 hours if needed for Nausea/Vomitin g. 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 Take with a 300 mg tab for a total of 450 mg daily 90 Tablet 3 01/15/2023 4 Discontinue d(*Medicati on adjustment) cephalexin (KEFLEX) 500 mg capsuleIndications: UTI (urinary tract infection), uncomplicated Take 1 Capsule (500 mg) by mouth two times daily for 7 days. 14 Capsule 0 07/05/2023 Active Problems Problem Noted Date Diagnosed Date Lesion of liver 04/11/2023 Lung nodule 04/11/2023 Dizziness 10/24/2022 Continuous leakage of urine 10/24/2022 Allergic rhinitis 08/21/2022 Overview: dust, on Singulair Irritable bowel syndrome 08/21/2022 Overview: constipation predominate Mixed hyperlipidemia 08/21/2022 Overview: on a statin At high risk for falls 08/21/2022 Overview: Added via Discern Expert [id number]_HIGHRISKFALL_PROBLEM Rule. Disease of spinal cord, unspecified 08/02/2022 Posttraumatic stress disorder 07/19/2022 Panic disorder with agoraphobia 04/27/2022 Insomnia due to mental condition 02/13/2022 Mood disorder as late effect of traumatic brain injury 02/13/2022 Alcohol use disorder, severe , in sustained remission since 201101/05/2022 Methamphetamine use disorder , severe, in sustained remission since 200901/05/2022 Controlled type 2 diabetes m ellitus with complication, without long-term current use of insulin 08/25/2021 Chest pain 11/06/2018 Stress incontinence 09/08/2016 Enlarged lymph node 01/13/2015 LEO 07/2012 AHI-5, RDI-15 04/09/2023 AHI- 53 08/31 Hemangioma of liver 12/23/2013 Overview: Noted on CT in November 2013. Several. VAIN I (vaginal intraepithelial neoplasia grade I) 12/07/2013 High risk medication use 04/02/2013 Fibromyalgia syndrome 03/24/2013 Arnold-Chiari malformation, type I 12/22/2012 History of attention deficit hyperactivity disor amrit (ADHD) 12/04/2012 Tobacco use disorder 12/05/2002 Overview: Tobacco Abuse Generalized anxiety disorder Major depressive disorder, recurrent, moderate Resolved Problems Problem Noted Date Diagnosed Date Resolved Date Borderline personality disorder 04/27/2022 04/27/2022 History of panic attacks 01/05/2022 Severe episode of recurrent major depressive disorder, without psychotic features 08/25/202101/2022 Controlled type 2 diabetes m ellitus without complication, without long-term current use of insulin 08/17/2020 01/04/2022 Closed fracture of first lum bar vertebra with routine healing 04/15/2018 05/28/2023 Methamphetamine use 11/21/2017 09/12/19 19 Pain management contract terminated 11/21/2017 01/05/2022 Panic attacks 11/06/2017 01/05/2022 Anxiety 11/05/2017 01/05/2022 Personality disorder, unspecified 11/05/2017 09/11/2018 Obstructive sleep apnea syndrome 05/02/2017 02/14/2023 S/P appendectomy 03/29/2017 08/21/2022 Insomnia 03/29/2017 02/13/2022 delivery delivered 03/29/2017 05/28/2023 Vaginal venereal warts 01/13/201509/11 Warts, genital 12/07/2013 04/26/2014 Pain medication agreement si gned and scanned 04/03/13 04/02/2013 11/21/2017 Overview: Short term started 8/13 Vaginal yeast infection 01/07/2013/2 01/2023 Condyloma acuminatum of vagina 01/07/2013 04/22/2013 Condyloma acuminatum of perianal region 01/07/2013 04/22/2013 Depression 04/11/2012 01/05/2022 Overview: Treated by Dr. Calloway. Status post LEEP (loop elect rosurgical excision procedure) of cervix 11/29/2000 08/21/2022 Overview: LEEP Encounters Date Type Department Care Team Description 08/02/2023 8:30 AM TRAVEL PHYSICAL THERAPIST Telemedicine [facility] [address] [place] [address] Yunior Madrigal MD Telehealth; Medication Management 08/02/2023 Travel 07/28/2023 8:10 AM TRAVEL PHYSICAL THERAPIST - 07/28/2023 9:17 AM TRAVEL PHYSICAL THERAPIST Emergency [facility] [address] [place] [address] Matt Alston MD Low back pain, unspecified back pain laterality, unspecified chronicity, unspecified whether sciatica present (Primary Dx) Discharge Disposition: Home Self Care 07/28/2023 Travel 07/22/2023 Telephone [facility] [address] [place] [address] Lindy Mcnair MD OTHER 07/07/2023 2:16 PM TRAVEL PHYSICAL THERAPIST - 07/07/2023 4:02 PM TRAVEL PHYSICAL THERAPIST Emergency [facility] Emergency Department [address] [place] [address] Randal Wiggins MD Injury of back, initial encounter (Primary Dx); Anterolisthesis of lumbar spine Discharge Disposition: Home Self Care 07/07/2023 Travel 07/03/2023 1:10 PM TRAVEL PHYSICAL THERAPIST Orders Only [facility] [address] [place] [address] Lab, [facility] 07/03/2023 Travel 06/18/2023 4:20 PM TRAVEL PHYSICAL THERAPIST Telemedicine [facility] [address] [place] [address] Roxana Lares, MARY Telehealth; UTI; Urinary Problem (odor. pt had UTI 3 weeks ago and finished 14 of 21 days, but missed a lot of the 14 day tabs. Pt sx started again yesterday. Pt will be able to go into clinic tomorrow) 06/18/2023 Travel 06/18/2023 Telephone [facility] [address] [place] [address] Roxana Lares PRESETTER OPERATOR Appointment 06/05/2023 9:00 AM TRAVEL PHYSICAL THERAPIST Telemedicine [facility] [address] [place] [address] Yunior Madrigal MD Telehealth; Medication Management 06/05/2023 Travel 05/28/2023 4:20 PM TRAVEL PHYSICAL THERAPIST Telemedicine [facility] [address] [place] [address] Rubia Luke NP Urinary Problem 05/28/2023 Travel 05/21/2023 Telephone [facility] [address] [place] [address] Castro Boudreaux MD Cpap prescription 05/10/2023 8:30 AM TRAVEL PHYSICAL THERAPIST Telemedicine [facility] [address] [place] [address] Castor Boudreaux MD Telehealth; Follow Up (Sleep study 04/09/23) 05/10/2023 Travel from Last 3 Months Immunizations Name Administration Dates Next Due DTaP 05/16/2007 Hep B, Adolescent/high Risk Infant 10/31/2012 Hepatitis B (Adult) 05/25/2013,12/02/2012,2012 Influenza Virus, Unspecified 04/16/2018, 04/04/2015,07/26/2014,2013,04/22/2013 Influenza, High-dose Inactivated 07/26/2014,04/01 Influenza, IIV3 (Age >=3 years) 07/26/2014,04/22 Influenza, IIV4 04/16/2018,04/04/2015,04/26/2014 Pneumococcal Conj 20-valent (Prevnar 20) 03/23/2022 Tdap 01/11/2012,05/16/2007 Zoster (Shingrix-RZV, recombinant) 03/23/2022, Family History Medical History Relation Name Comments Behavior problems Brother 1 anger Suicide Attempts Brother 1 completed Behavior problems Brother 2 anger Good Health Brother 2 Eating disorder Daughter 1 Behavior problems Father Anger Coronary artery disease Father Diabetes Father cancer runs in both families Hyperlipidemia Father Hypertension Father Kidney disease Father Allergies Mother Anemia Mother Anxiety disorder Mother Coronary artery disease Mother Depression Mother Chronic pain Diabetes Mother Hyperlipidemia Mother Hypertension Mother Kidney disease Mother Good Health Sister 1 Good Health Sister 2 Relation Name Status Comments Brother 1 (Age 33) Brother 2 Alive Daughter 1 Alive Daughter 2 Alive Father Maternal Grandfather Maternal Grandmother Mother Paternal Grandfather Paternal Grandmother Sister 1 Alive Sister 2 Alive Son 1 Alive Son 2 Alive Social History Tobacco Use Types Packs/Day Years Used Date Smoking Tobacco: Former Cigarettes 0.5 10 S tarted: 08/01/2013 Smokeless Tobacco: Never Tobacco Cessation:Counseling Given: Yes Comments:now uses e-cig Alcohol Use Standard Drinks/Week Comments Not Currently 0 (1 standard drink = 0.6 oz pure alcohol) last ETOH 2016, quit as was in recovery PHQ-2 Answer Date Recorded PHQ-2 TOTAL SCORE 6 08/02/2023 Social Connections Answer Date Recorded Frequency of Communication with Friends and Fami ly 0 04/26/2023 Alcohol Use Answer Date Recorded How often do you have a drink containing alcohol ? 0 01/04/2022 Average Number of Drinks Not on file 022 Frequency of Binge Drinking Not on file 12/2021 Financial Resource Strain Answer Date R ecorded Difficulty of Paying Living Expenses 3 04/26/2023 Difficulty of Paying Living Expenses Not on file 04/26/2023 Food Insecurity Answer Date Recorded Worried About Running Out of Food in the Last Ye ar 1 04/26/2023 Transportation Needs Answer Date Record ed Lack of Transportation (Medical) 1 04/26/2023 Housing Stability Answer Date Recorded Unable to Pay for Housing in the Last Year 1 04/26/2023 Education Answer Date Recorded What is the highest level of school you have completed or the highest degree you have received? Associate degree: occupational, technical, or vocational program 01/04/2022 Sex and Gender Information Value Date Recorded Sex Assigned at Not on file Gender Identity Not on file Sexual Orientation Not on file Obstetrics History Para Term AB IAB SAB Ectopic Multiple Livin g Live Births 4 4 4 0 0 0 0 0 0 4 4 Date Outcome GA Total Labor Labor/2nd/3rd Weight Sex Delivery Anes PTL Cecilia A1 A5 Name Cl in Term Sara ng Term Sara ng Term Sara ng Term Sara ng Last Filed Vital Signs Vital Sign Reading Time Taken Comments Blood Pressure 158/97 07/28/2023 8:15 AM TRAVEL PHYSICAL THERAPIST Pulse 88 07/28/2023 8:15 AM TRAVEL PHYSICAL THERAPIST Temperature 36.6 ??C (97.8 ??F) 07/28/2023 8:15 AM CS T Respiratory Rate 16 07/28/2023 8:15 AM TRAVEL PHYSICAL THERAPIST Oxygen Saturation 95% 07/28/2023 8:15 AM TRAVEL PHYSICAL THERAPIST Inhaled Oxygen Concentration - - Weight 81.6 kg (180 lb) 07/28/2023 8:15 AM TRAVEL PHYSICAL THERAPIST Height 167.6 cm (5' 6) 07/28/2023 8:15 AM TRAVEL PHYSICAL THERAPIST Body Mass Index 29.05 07/28/2023 8:15 AM TRAVEL PHYSICAL THERAPIST Plan of Treatment Upcoming Encounters Date Type Department Care Team (Late st Contact Info) Description 08/19/2023 11:00 AM TRAVEL PHYSICAL THERAPIST Office Visit [facility] [address] [place] [address] Castro Boudreaux MD [address] [place] [address] 09/04/2023 7:00 AM TRAVEL PHYSICAL THERAPIST Telemedicine [facility] [address] [place] [address] Yunior Madrigal MD [address] [place] [address] Health Maintenance Due Date Last Done Comments COVID-19 vaccine series (#1) 05/02/1970 HIV for age 15-65 1984 Hepatitis C screening for ag e 18-79 10/31/1987 Colonoscopy through age 75 2014 Mammogram for age 45-75 12/10/2014 12/10/2013 Pap test for age 21-65 09/08/2019 09/07/2016, 2013 Tetanus booster 01/10/2022 01/11/2012, 05/16/2007 Zoster (shingles) series for age 50+ (2 of 2) 05/18/2022 03/23/2022, 03/23/2022 Influenza for age 50-64 03/01/2023 04/16/20 18, 04/16/2018, 04/04/2015, Additional history exists BMI (ht and wt on same day) for age 18+ 04/12/2024 04/12/2023, 03/28/2023, 2022, Additional history exists Depression screening for age 12+ 08/02/2024 08/02/2023, 06/05/2023, 05/06/2023, Additional history exists Lipids for age 45-75 03/23/2027 03/23/2022, 05/04/2021, 10/11/2020, Additional history exists Tdap Completed 01/11/2012, 05/16/2007 Hepatitis B series for Diabetes Completed 05/25/2013, 12/02/2012, 10/31/2012 Pneumococcal series for age 6-64 Completed 03/23/20 22 Medical Devices Implanted Type Area Superintendent Measurement Device Identifier Shelf Expiration Date Model / Serial / Lot Set Screw Cerv Ant 1.[facility] [id number] Implanted:Qty: 10 on 08/17/2021 by Juanito Bullock MD at [facility] Spine Implants Spine J And J Depuy Spine 497.78 / / Screw Cerv Post 3.5x10mm [facility] Titnm - [id number] Implanted:Qty: 7 on 08/17/2021 by Juanito Bullock MD at [facility] Spine J And J Depuy Spine 04.614.01 0 / / Bone 7mm Mtf Spacer Reji/Canclls Lordoctic - [id number] Implanted:Qty: 1 on 08/17/2021 by Juanito Bullock MD at [facility] Explanted:at [facility] (Quantity not on file) Spine Musculoskeletal Transplant 10/20/2023 [id number] / [id number] / Bone 7mm Mtf Spacer Reji/Canclls Lordoctic - [id number] Implanted:Qty: 1 on 08/17/2021 by Juanito Bullock MD at [facility] Explanted:at [facility] (Quantity not on file) Spine Musculoskeletal Transplant 03/23/2024 [id number] / [id number] / Chaz Cerv 60mmx3.5 Synapse Cvd Titnm - [id number] Implanted:Qty: 2 on 08/17/2021 by Juanito Bullock MD at [facility] Spine J And J Depuy Spine 04.614.76 0 / / Set Screw Cerv Synapse - [id number] Implanted:Qty: 7 on 08/17/2021 by Juanito Bullock MD at [facility] Spine J And J Depuy Spine 04.614.50 8 / / Pin Cerv Accs Temporary - [id number] Implanted:Qty: 1 on 08/17/2021 by Juanito Bullock MD at [facility] Spine J And J Depuy Spine 324.101 / / Plate Cerv 4lvl 68mm Cslp Variable Titnm - [id number] Implanted:Qty: 1 on 08/17/2021 by Juanito Bullock MD at [facility] Spine J And J Depuy Spine 450.183 / / Screw Cerv Ant 4x14mm Cslp Reji Slf [employer]pping [employer] Hea - [id number] Implanted:Qty: 8 on 08/17/2021 by Juanito Bullock MD at [facility] Spine J And J Depuy Spine 487.044 / / Screw Cerv Ant 4x16mm Cslp Reji Slf Tpping Expansion Hea - [id number] Implanted:Qty: 2 on 08/17/2021 by Juanito Bullock MD at [facility] Spine J And J Depuy Spine 487.046 / / Bone 7mm Mtf Spacer Reji/Canclls Lordoctic - [id number] Implanted:Qty: 1 on 08/17/2021 by Juanito Bullock MD at [facility] Explanted:at [facility] (Quantity not on file) Spine Musculoskeletal Transplant 03/17/2024 [id number] / [id number] / Bone 8mm Mtf Spacer Reji/Canclls Lordoctic - [id number] Implanted:Qty: 1 on 08/17/2021 by Juanito Bullock MD at [facility] Explanted:at [facility] (Quantity not on file) Spine Musculoskeletal Transplant 10/16/2023 [id number] / [id number] / Procedures Procedure Name Priority Date/Time Associated Diagnosis Comments CT SPINE CERVICAL WO STAT 07/07/2023 3:[address] THERAPIST [address] SPINE THORACIC WO STAT 07/07/2023 3:[address] SPINE LUMBAR WO STAT 07/07/2023 3: 14 PM TRAVEL PHYSICAL THERAPIST URINALYSIS MICROSCOPIC Routine 07/03/2023 12:55 PM TRAVEL PHYSICAL THERAPIST Dysuria URINE CULTURE Routine 07/03/2023 12:55 PM TRAVEL PHYSICAL THERAPIST Dysuria UA W/ SEDIMENT EXAM REFLEXED PER CRITERIA Routine 07/03/2023 12:55 PM TRAVEL PHYSICAL THERAPIST Dysuria from Last 3 Months Results * CT SPINE CERVICAL WO (07/07/2023 3:23 PM TRAVEL PHYSICAL THERAPIST) Anatomical Region Laterality Modality CERVICAL SPINE, NECK, Spine Comp uted Tomography 07/07/2023 3:38 PM TRAVEL PHYSICAL THERAPIST Impressions 07/07/2023 3:38 PM TRAVEL PHYSICAL THERAPIST Postoperative cervical spine. No acute or traumatic findings. Please note that all CT scans at this facility use dose modulation, iterative reconstruction, and/or weight-based dosing when appropriate to reduce radiation dose to as low as reasonably achievable. Dictated by Adry Dejesus MD @ 07/07/2023 3:38:22 PM (Electronically Signed) Narrative 07/07/2023 3:38 PM TRAVEL PHYSICAL THERAPIST For Patients: ??As a result of the 21st Century Cures Act, medical imaging exams and procedure reports are released immediately into your electronic medical record. ??You may view this report before your referring provider. ??If you have questions, please contact your health care provider. INDICATION: Neck trauma, midline tenderness. COMPARISON: Radiographs 08/19/2021, CT angiogram neck 04/30/2021, cervical spine CT 04/15/2018. TECHNIQUE: CT of the cervical spine without contrast. Multiplanar axial, coronal, and sagittal reformats were reconstructed. FINDINGS: C3-C7 anterior fusion. C3-C7 posterior fusion with multilevel lateral mass screws and paired vertical rods. All the hardware appears intact without loosening or complication. There is solid bony bridging across the disc spaces at the operative level. Solid appearing fusion of the lateral mass/facet. Mild adjacent segment disease at C7-T1. No severe neural foraminal stenosis. No central canal stenosis. No focal bony lesions. Limited exam of the intracranial contents, soft tissues of the neck, and the lung apices is normal. Procedure Note Adry Dejesus MD - 07/07/2023 For Patients: As a result of the Cures Act, medical imagingexams and procedure reports are released immediately into your electronicmedical record. You may view this report before your referring provider.If you have questions, please contact your health care provider. INDICATION: Neck trauma, midline tenderness. COMPARISON: Radiographs 08/19/2021, CT angiogram neck 04/30/2021, cervical spine CT04/15/2018. TECHNIQUE: CT of the cervical spine without contrast. Multiplanar axial, coronal, andsagittal reformats were reconstructed. FINDINGS: C3-C7 anterior fusion. C3-C7 posterior fusion with multilevel lateral massscrews and paired vertical rods. All the hardware appears intact withoutloosening or complication. There is solid bony bridging across the discspaces at the operative level. Solid appearing fusion of the lateralmass/facet. Mild adjacent segment disease at C7-T1. No severe neural foraminal stenosis. No central canal stenosis. No focal bony lesions. Limited exam of the intracranial contents, soft tissues of the neck, andthe lung apices is normal. IMPRESSION: Postoperative cervical spine. No acute or traumatic findings. Please note that all CT scans at this facility use dose modulation,iterative reconstruction, and/or weight-based dosing when appropriate toreduce radiation dose to as low as reasonably achievable. Dictated by Adry Dejesus MD @ 07/07/2023 3:38:22 PM (Electronically Signed) Randal Wiggins MD CT * CT SPINE THORACIC WO (07/07/2023 3:18 PM TRAVEL PHYSICAL THERAPIST) Anatomical Region Laterality Modality THORACIC SPINE, Spine, Spine Com puted Tomography 07/07/2023 3:30 PM TRAVEL PHYSICAL THERAPIST Impressions 07/07/2023 3:30 PM TRAVEL PHYSICAL THERAPIST 1. No acute traumatic finding in the thoracic or lumbar spine. 2. Grade 1 anterolisthesis of L4 on L5. Previously described on lumbar spine MRI, but those images are not available for direct comparison. Please note that all CT scans at this facility use dose modulation, iterative reconstruction, and/or weight-based dosing when appropriate to reduce radiation dose to as low as reasonably achievable. Dictated by Adry Dejesus MD @ 07/07/2023 3:30:06 PM (Electronically Signed) Narrative 07/07/2023 3:30 PM TRAVEL PHYSICAL THERAPIST For Patients: ??As a result of the Cures Act, medical imaging exams and procedure reports are released immediately into your electronic medical record. ??You may view this report before your referring provider. ??If you have questions, please contact your health care provider. INDICATION: Back trauma COMPARISON: CT chest 01/21/2023, CT lumbar spine 04/15/2018 TECHNIQUE: CT of the thoracic and lumbar spine without contrast. Multiplanar axial, coronal, and sagittal reformats were reconstructed. FINDINGS: No fracture or dislocation. Partially visualized spinal hardware at C1. Normal alignment in the thoracic spine. There is 6 mm of grade 1 anterolisthesis of L5 on S1. This is new since 2018. There is a lumbar spine MRI from 11/16/2022 that describes similar findings. These images are from a different facility on are not available for direct comparison. Multilevel disc space narrowing and disc degenerative change in the endplates with small osteophytes. L3 through S1 facet arthropathy which is more severe on the right side. No severe neural foraminal or central canal stenosis. No sacral fracture seen. Mild sacroiliac degeneration. No focal bony lesions. Atherosclerotic vascular calcifications.: Procedure Note Adry Dejesus MD - 07/07/2023 For Patients: As a result of the Cures Act, medical imagingexams and procedure reports are released immediately into your electronicmedical record. You may view this report before your referring provider.If you have questions, please contact your health care provider. INDICATION: Back trauma COMPARISON: CT chest 01/21/2023, CT lumbar spine 04/15/2018 TECHNIQUE: CT of the thoracic and lumbar spine without contrast. Multiplanar axial,coronal, and sagittal reformats were reconstructed. FINDINGS: No fracture or dislocation. Partially visualized spinal hardware at C1. Normal alignment in the thoracic spine. There is 6 mm of grade 1anterolisthesis of L5 on S1. This is new since 2018. There is a lumbarspine MRI from 11/16/2022 that describes similar findings. These imagesare from a different facility on are not available for directcomparison. Multilevel disc space narrowing and disc degenerative change in theendplates with small osteophytes. L3 through S1 facet arthropathy which is more severe on the right side. No severe neural foraminal or central canal stenosis. No sacral fracture seen. Mild sacroiliac degeneration. No focal bony lesions. Atherosclerotic vascular calcifications.: IMPRESSION: 1. No acute traumatic finding in the thoracic or lumbar spine. 2. Grade 1 anterolisthesis of L4 on L5. Previously described on lumbarspine MRI, but those images are not available for direct comparison. Please note that all CT scans at this facility use dose modulation,iterative reconstruction, and/or weight-based dosing when appropriate toreduce radiation dose to as low as reasonably achievable. Dictated by Adry Dejesus MD @ 07/07/2023 3:30:06 PM (Electronically Signed) Randal Wiggins MD CT * CT SPINE LUMBAR WO (07/07/2023 3:14 PM TRAVEL PHYSICAL THERAPIST) Anatomical Region Laterality Modality LUMBAR SPINE, Spine, Spine Compu jerry Tomography 07/07/2023 3:29 PM TRAVEL PHYSICAL THERAPIST Impressions 07/07/2023 3:29 PM TRAVEL PHYSICAL THERAPIST 1. No acute traumatic finding in the thoracic or lumbar spine. 2. Grade 1 anterolisthesis of L4 on L5. Previously described on lumbar spine MRI, but those images are not available for direct comparison. Please note that all CT scans at this facility use dose modulation, iterative reconstruction, and/or weight-based dosing when appropriate to reduce radiation dose to as low as reasonably achievable. Dictated by Adry Dejesus MD @ 07/07/2023 3:29:36 PM (Electronically Signed) Narrative 07/07/2023 3:29 PM TRAVEL PHYSICAL THERAPIST For Patients: ??As a result of the Cures Act, medical imaging exams and procedure reports are released immediately into your electronic medical record. ??You may view this report before your referring provider. ??If you have questions, please contact your health care provider. INDICATION: Back trauma COMPARISON: CT chest 01/21/2023, CT lumbar spine 04/15/2018 TECHNIQUE: CT of the thoracic and lumbar spine without contrast. Multiplanar axial, coronal, and sagittal reformats were reconstructed. FINDINGS: No fracture or dislocation. Partially visualized spinal hardware at C1. Normal alignment in the thoracic spine. There is 6 mm of grade 1 anterolisthesis of L5 on S1. This is new since 2018. There is a lumbar spine MRI from 11/16/2022 that describes similar findings. These images are from a different facility on are not available for direct comparison. Multilevel disc space narrowing and disc degenerative change in the endplates with small osteophytes. L3 through S1 facet arthropathy which is more severe on the right side. No severe neural foraminal or central canal stenosis. No sacral fracture seen. Mild sacroiliac degeneration. No focal bony lesions. Atherosclerotic vascular calcifications.: Procedure Note Adry Dejesus MD - 07/07/2023 For Patients: As a result of the Cures Act, medical imagingexams and procedure reports are released immediately into your electronicmedical record. You may view this report before your referring provider.If you have questions, please contact your health care provider. INDICATION: Back trauma COMPARISON: CT chest 01/21/2023, CT lumbar spine 04/15/2018 TECHNIQUE: CT of the thoracic and lumbar spine without contrast. Multiplanar axial,coronal, and sagittal reformats were reconstructed. FINDINGS: No fracture or dislocation. Partially visualized spinal hardware at C1. Normal alignment in the thoracic spine. There is 6 mm of grade 1anterolisthesis of L5 on S1. This is new since 2018. There is a lumbarspine MRI from 11/16/2022 that describes similar findings. These imagesare from a different facility on are not available for directcomparison. Multilevel disc space narrowing and disc degenerative change in theendplates with small osteophytes. L3 through S1 facet arthropathy which is more severe on the right side. No severe neural foraminal or central canal stenosis. No sacral fracture seen. Mild sacroiliac degeneration. No focal bony lesions. Atherosclerotic vascular calcifications.: IMPRESSION: 1. No acute traumatic finding in the thoracic or lumbar spine. 2. Grade 1 anterolisthesis of L4 on L5. Previously described on lumbarspine MRI, but those images are not available for direct comparison. Please note that all CT scans at this facility use dose modulation,iterative reconstruction, and/or weight-based dosing when appropriate toreduce radiation dose to as low as reasonably achievable. Dictated by Adry Dejesus MD @ 07/07/2023 3:29:36 PM (Electronically Signed) Randal Wiggins MD CT * (ABNORMAL) URINALYSIS MICROSCOPIC (07/03/2023 12:55 PM TRAVEL PHYSICAL THERAPIST) Pathologist [facility] RBC 3-5(A) 0-2, None Seen /HPF 07/03/2023 1:11 PM TRAVEL PHYSICAL THERAPIST [facility] WBC 3-5 0-2, 3-5, None Seen /HPF 07/03/2023 1:11 PM TRAVEL PHYSICAL THERAPIST [facility] BACTERIA Moderate(A) None Seen, Rare, Few Bacteria/ HPF 07/03/2023 1:11 PM TRAVEL PHYSICAL THERAPIST [facility] EPITHELIAL CELLS Few None Seen, Few Epi/HPF 07/03/2023 1:11 PM TRAVEL PHYSICAL THERAPIST [facility] Mucus Present 07/03/2023 1:11 PM TRAVEL PHYSICAL THERAPIST [facility] Urine URINE SPECIMEN / Unknown Non-Blood / Unknown 07/03/2023 12:55 PM TRAVEL PHYSICAL THERAPIST 07/03/2023 12:55 PM TRAVEL PHYSICAL THERAPIST Roxana Lares NP URINE [facility] [address] [place] [address] * (ABNORMAL) URINE CULTURE (07/03/2023 12:55 PM TRAVEL PHYSICAL THERAPIST) CULTURE RESULT(A) 07/07/2023 2:11 PM TRAVEL PHYSICAL THERAPIST [facility] CULTURE 10,000-50,000 CFU/mL Escherichia coli 07/07/2023 2:11 PM TRAVEL PHYSICAL THERAPIST [facility] CULTURE <10,000 CFU/mL Multiple organisms probable contaminants 07/07/2023 2:11 PM TRAVEL PHYSICAL THERAPIST [facility] Urine URINE SPECIMEN / Unknown Non-Blood / Unknown 07/03/2023 12:55 PM TRAVEL PHYSICAL THERAPIST 07/03/2023 12:55 PM TRAVEL PHYSICAL THERAPIST Narrative Organism Antibiotic Method Susceptibility Escherichia coli TRIMETHOPRIM/SULF <=2/38: S Escherichia coli AMPICILLIN <=8: S Escherichia coli CEFAZOLIN <=2: S Escherichia coli CEFAZOLIN-UC <=2: S Comment:Cefazolin-UC interpretations are for therapy of uncomplicated UTIs due to E.coli, K.pneumoniae, or P.mirablis. Cefazolin breakpoint is used as a surrogate to predict results for the oral agents - cefdinir, cefuroxime, and cephalexin, when used for therapy of uncomplicated UTIs due to E coli, K, pneumoniae, and P. mirabilis. The FDA recommends cefadroxil susceptibility can be deduced from cefazolin. Escherichia coli GENTAMICIN <=1: S Escherichia coli CEFTRIAXONE <=1: S Escherichia coli CEFTAZIDIME <=1: S Escherichia coli LEVOFLOXACIN <=0.25: S Escherichia coli MEROPENEM <=1: S Escherichia coli PIPERACILLIN/TAZO <=4: S Escherichia coli AMPICILLIN/SULBACTAM <=1: S Escherichia coli CEFEPIME <=2: S Escherichia coli NITROFURANTOIN <=32: S Escherichia coli TOBRAMYCIN <=1: S Roxana Lares NP MICROBIOLOGY [facility] [address] [place] [address], * (ABNORMAL) UA W/ SEDIMENT EXAM REFLEXED PER CRITERIA (07/03/2023 12:55 PM TRAVEL PHYSICAL THERAPIST) COLOR Yellow Yellow Color 07/03/2023 1:09 PM TRAVEL PHYSICAL THERAPIST [facility] CLARITY Slightly Cloudy(A) Clear Clarity 07/03/2023 1:09 PM [facility] SPECIFIC GRAVITY,URINE 1.025 1.010, 1.015, 1.020, 1.025 07/03/2023 1:09 PM [facility] PH,URINE 5.5 6.0, 7.0, 8.0, 5.5, 6.5, 7.5, 8.5 07/03/2023 1:09 PM [facility] UROBILINOGEN, QUALITATIVE Normal Normal EU/dl 07/03/2023 1:09 PM [facility] PROTEIN, URINE Negative Negative mg/dL 07/03/2023 1:09 PM [facility] GLUCOSE, URINE Negative Negative mg/dL 07/03/2023 1:09 PM [facility] KETONES,URINE Negative Negative mg/dL 07/03/2023 1:09 PM [facility] BILIRUBIN,URI NE Negative Negative 07/03/2023 1:09 PM [facility] OCCULT BLOOD,URINE Negative Negative 07/03/2023 1:09 PM [facility] NITRITE Negative Negative 07/03/2023 1:09 PM [facility] LEUKOCYTE ESTERASE Moderate(A) Negative 07/03/2023 1:09 PM [facility] Urine URINE SPECIMEN / Unknown Non-Blood / Unknown 07/03/2023 12:55 PM TRAVEL PHYSICAL THERAPIST 07/03/2023 12:55 PM TRAVEL PHYSICAL THERAPIST Roxana Lares PRESETTER OPERATOR URINE [facility] [address] [place] [address] from Last 3 Months Additional Health Concerns Infection Onset Date Last Indicated MRSA Clearance Comment:Infection Control Note: Hx of MRSA, surveillance criteria met, no need for further testing or isolation precautions. Do not delete or resolve the infection flag. 11/07/2018 11/07/2018 Advance Directives Latest Code Status on File Code Status Date Activated Date Inactivated Comments Full Code 08/17/2021 7:22 PM 08/20/2021 3:35 PM Question Answer Comments Code Status Discussion: Reviewed Preferences Code Status History Code Status Date Activated Date Inactivated Comments Full Code 02/26/2020 7:24 PM 02/27/2020 10:33 AM Question Answer Comments Code Status Discussion: Not Discussed Full Code 11/06/2018 9:07 PM 11/07/2018 4:42 PM Full Code 04/15/2018 3:48 PM 04/16/2018 8:32 PM Question Answer Comments Code Status Discussion: Discussed Care Teams Spa Technician Relationship Specialty Start Date End Date Lindy Mcnair MD [address] [place] [address] PCP - General Family Practice 07/31/21
--- NOTE | 2023-08-09 13:00 | CRLHL7_ITS ---
For Patients: As a result of the Century Cures Act, medical imaging exams and procedure reports are released immediately into your electronic medical record. You may view this report before your referring provider. If you have questions, please contact your health care provider. INDICATION: Lumbar stenosis. TECHNIQUE: Multiplanar multisequence noncontrast MR images of lumbar spine. COMPARISON: MRI lumbar spine 11/16/2022. FINDINGS: Mild rightward lumbar curvature. The lumbar lordosis is preserved. Vertebral heights maintained. No acute fracture. No T1 hypointense lesions. Normal conus terminates at L1-2. T12-L1: Mild disc degeneration. Shallow posterior disc bulge. No spinal canal or neural foraminal narrowing. L1-2: Mild disc degeneration. Annular bulge. No spinal canal or neural foraminal narrowing. L2-3: Mild disc degeneration. No spinal canal or neural foraminal narrowing. L3-4: Moderate disc degeneration. Shallow posterior disc bulge. Mild facet arthropathy. No spinal canal narrowing. Minimal narrowing of the lateral recesses. No neural foraminal narrowing. L4-5: Slightly worsening grade 1 anterolisthesis measuring 4-5 mm. Moderate disc degeneration. Mild disc height loss. Enlarging posterior disc bulge. Advanced bilateral facet arthropathy. Bilateral facet effusions. Edema within the bilateral posterior elements. Dorsal extra-spinal synovial cysts. Worsening mild spinal canal narrowing. [id number] right and mild left lateral recess narrowing. Mild right and moderately severe left neural foraminal stenosis. L5-S1: Mild disc degeneration. Shallow posterior disc bulge. Moderate facet arthropathy. No spinal canal or neural foraminal narrowing. IMPRESSION: 1. At L4-5, worsening grade 1 anterolisthesis and enlarging posterior disc bulging contribute to mild narrowing of the spinal canal as well as [id number] right and mild left lateral recess narrowing. Moderately severe left neural foraminal stenosis with potential impingement of the exiting left L4 nerve root. Advanced facet arthropathy. Edema within the posterior elements is most compatible with a stress response. 2. Multilevel lumbar spondylosis is otherwise not significantly changed. Dictated by Tony Figueroa MD @ 08/10/2023 8:05:09 AM (Electronically Signed)
== END 2023-08-09 12:51 | disposition home or self-care (01) ==
LOC: MRI 12:51
PROVIDERS: PCP Family Medicine; Visit Provider Specialist
DX: M48.062 Spinal stenosis, lumbar region with neurogenic claudication (principal); M51.26 Other intervertebral disc displacement, lumbar region; M43.16 Spondylolisthesis, lumbar region
CPT/HCPCS: 72148

== ENCOUNTER 2023-12-25 13:57 | Outpatient (CLI) | payer MEDICARE, MEDICAID, SELFPAY ==
--- NOTE | 2023-12-25 14:30 | CRLHL7_ITS ---
For Patients: As a result of the Century Cures Act, medical imaging exams and procedure reports are released immediately into your electronic medical record. You may view this report before your referring provider. If you have questions, please contact your health care provider. Indication: Urinary incontinence Technique: Multiplanar, multisequence MRI of the cervical spine obtained without contrast. Comparison: CT cervical spine 07/07/2023 Findings: Postsurgical changes of anterior plate and screw fusion at C3-C7 with interbody spacers and mature bony ankylosis. Posterior screw and alisha fusion changes are also present at C3-C7, with scattered posterior element ankylosis. The normal cervical lordosis is preserved. Trace anterolisthesis at C7-T1. No acute osseous abnormality. Bone marrow signal is unremarkable given artifact limitations. Included posterior fossa structures appear within normal limits. The spinal cord is normal in course, caliber, and signal. No suspicious findings identified in the paraspinal soft tissues. C2-C3: No neural foraminal or spinal canal stenosis. C3-C4: Postop changes, bony ankylosis. Mild bilateral neural foraminal narrowing. No spinal canal stenosis. C4-C5: Postop changes, bony ankylosis. No right, mild left neural foraminal narrowing. No spinal canal stenosis. C5-C6: Postop changes, bony ankylosis. No right, mild left neural foraminal narrowing. No spinal canal stenosis. C6-C7: Postop changes, bony ankylosis. No left, mild right neural foraminal narrowing. No spinal canal stenosis. C7-T1: Disc unroofing/bulge, facet arthropathy. No neural foraminal or spinal canal stenosis. Impression: 1. Postsurgical changes of anterior and posterior cervical spinal fusion from C3-C7, with mature bony ankylosis. 2. Normal cervical spine alignment. Trace degenerative anterolisthesis at C7-T1. No acute osseous abnormality. 3. Low-grade neural foraminal narrowing as detailed. No spinal canal stenosis. No cord compression or cord signal abnormality. Dictated by Lucia Irizarry MD @ 12/26/2023 11:03:03 AM (Electronically Signed)
--- NOTE | 2023-12-25 15:30 | CRLHL7_ITS ---
For Patients: As a result of the Century Cures Act, medical imaging exams and procedure reports are released immediately into your electronic medical record. You may view this report before your referring provider. If you have questions, please contact your health care provider. Indication: Urinary incontinence Technique: Multiplanar, multisequence MRI of the thoracic spine, obtained without contrast. Comparison: CT thoracic spine report 07/07/2023, MRI thoracic spine 03/17/2021 Findings: There is artifact from patient motion, degrading image quality, particularly across the axial sequences. The normal thoracic kyphosis is preserved. No significant spondylolisthesis. Vertebral body heights are grossly maintained. No acute osseous abnormality or focal compression deformity. Unremarkable bone signal. Scattered degenerative Schmorl`s nodes. Shallow central cranial disc extrusion at T11-12 contributes to mild ventral thecal sac effacement and mild spinal canal narrowing. No cord compression or cord signal abnormality. Minor degenerative disc changes and mild facet arthropathy elsewhere. No high-grade neural foraminal stenosis. Incidental small right perineural cyst at T9-10. No concerning findings identified in the paraspinal soft tissues. Trace bilateral pleural effusions. Impression: 1. No acute osseous abnormality. No cord compression or cord signal abnormality. 2. Scattered spondylosis as detailed, without significant neural foraminal or spinal canal stenosis. 3. Trace bilateral pleural effusions. Dictated by Lucia Irizarry MD @ 12/26/2023 11:09:16 AM (Electronically Signed)
== END 2023-12-25 13:58 | disposition home or self-care (01) ==
LOC: MRI 13:58
PROVIDERS: PCP Family Medicine; Visit Provider Psychiatry & Neurology Neurology
DX: R32 Unspecified urinary incontinence (principal); M47.894 Other spondylosis, thoracic region; J90 Pleural effusion, not elsewhere classified
CPT/HCPCS: 72141; 72146